=== PATIENT | female | born 1985 | race Caucasian/White ===

== ENCOUNTER 2016-07-09 02:07 | Inpatient (IN) | payer MEDICAID ==
[2016-07-09] MEDS ORDERED: SODIUM CHLORIDE FLUSH 0.9% 10 ML SYRINGE IVP ONE (02:28)
[2016-07-09] MEDS ORDERED: OXYTOCIN/LACTATED RINGERS 250 ML IV ONE ×3 (02:56→05:06)
[2016-07-09] MEDS ORDERED: LACTATED RINGERS 1,000 ML IV SCH ×2 (03:00→05:00)
[2016-07-09] MEDS ORDERED: miSOPROStol 200 MCG TABLET ONE (03:18)
[2016-07-09] MEDS ORDERED: MAGNESIUM HYDROXIDE 2,400 MG/30 ML UDC PO PRN (04:14)
[2016-07-09] MEDS ORDERED: diphenhydrAMINE 25 MG CAPSULE PO PRN (04:14)
[2016-07-09] MEDS ORDERED: OXYTOCIN/LACTATED RINGERS 250 ML IV PRN (04:14)
[2016-07-09] MEDS: IBUPROFEN 600 MG TABLET PO SCH ×4 (04:58→23:03)
[2016-07-09] MEDS: HYDROcod/ACETAM 5/325 MG TABLET PO PRN ×5 (05:18→20:56)
[2016-07-09] MEDS: DOCUSATE SODIUM 100 MG CAPSULE PO SCH ×2 (09:07→20:56)
[2016-07-10] MEDS: HYDROcod/ACETAM 5/325 MG TABLET PO PRN ×2 (03:53→08:20)
[2016-07-10] MEDS: IBUPROFEN 600 MG TABLET PO SCH ×2 (04:54→11:02)
[2016-07-10] MEDS: DOCUSATE SODIUM 100 MG CAPSULE PO SCH (08:20)
== END 2016-07-10 16:10 | disposition home or self-care (01) | DRG 775 ==
PROC: 10E0XZZ Delivery of Products of Conception, External Approach (ICD-10-PCS; principal; 2016-07-09)
DX: O99.213 Obesity complicating pregnancy, third trimester (principal); Z68.42 Body mass index [BMI] 45.0-49.9, adult; O99.214 Obesity complicating childbirth; E66.01 Morbid (severe) obesity due to excess calories; O66.0 Obstructed labor due to shoulder dystocia; O66.2 Obstructed labor due to unusually large fetus; O99.02 Anemia complicating childbirth; D50.0 Iron deficiency anemia secondary to blood loss (chronic); Z3A.40 40 weeks gestation of pregnancy; Z37.0 Single live birth; Z71.3 Dietary counseling and surveillance

== ENCOUNTER 2016-11-11 18:09 | Observation (INO) | payer MEDICAID ==
--- NOTE | 2016-11-11 18:36 | ED Physician Documentation ---
PD HPI ABD PAIN - Stated complaint Stated Complaint: ABD PX - Chief complaint Chief Complaint: Abd Pain - History obtained from History obtained from: Patient - History of Present Illness Timing - onset: How many days ago (3) Timing - duration: Days (3) Timing - details: Gradual onset Pain level max: 8 Pain level now: 6 Quality: Aching, Pain Location: RUQ, Epigastric Radiation: Other (non-radiating) Improved by: Other (nothing, tried tums without relief) Worsened by: Other (nothing) Associated symptoms: Nausea, Vomiting (once). No: Fever, Hematochezia, Dysuria , Hematuria, Chest pain Similar symptoms before: Has not had sx before Recently seen: Not recently seen Review of Systems Ten Systems: 10 systems reviewed and negative Constitutional: denies: Fever, Chills Respiratory: denies: Cough : denies: Now EGA Skin: denies: Rash Musculoskeletal: denies: Neck pain, Back pain Neurologic: denies: Headache PD PAST MEDICAL HISTORY - Past Medical History Past Medical History: Yes Psych: Anxiety - Past Surgical History Past Surgical History: No - Allergies Allergies/Adverse Reactions: Allergies Allergy/AdvReac Type Severity Reaction Status Date / Time No Known Drug Allergies Allergy Verified 07/09/16 04:35 - Social History Does the pt smoke?: No Smoking Status: Never smoker Does the pt drink ETOH?: No Does the pt have substance abuse?: No - Immunizations Immunizations are current?: Yes - POLST Patient has POLST: No PD ED PE NORMAL - Vitals Vital signs reviewed: Yes - General General: Alert and oriented X 3, No acute distress - HEENT HEENT: Moist mucous membranes - Neck Neck: Supple, no meningeal sign - Cardiac Cardiac: RRR - Respiratory Respiratory: No respiratory distress, Clear bilaterally - Abdomen Abdomen: Soft, Other (TTP RUQ, + vigil's sign) - Back Back: No CVA TTP, No spinal TTP - Derm Derm: Warm and dry - Neuro Neuro: Alert and oriented X 3 - Psych Psych: Normal mood, Normal affect Results - Vitals Vitals: Vital Signs - 24 hr 11/11/16 11/11/16 11/11/16 18:14 19:33 21:03 Temperature 37.1 C 36.8 C Heart Rate 90 81 90 Respiratory 17 18 18 Rate Blood Pressure 124/47 L 103/45 L 112/73 O2 Saturation 100 99 97 11/11/16 21:42 Temperature Heart Rate 91 Respiratory 18 Rate Blood Pressure 112/72 O2 Saturation 99 Oxygen O2 Source Room air - Labs Labs: Laboratory Tests 11/11/16 11/11/16 11/11/16 18:24 18:51 18:51 WBC 11.8 H RBC 4.98 Hgb 11.2 L Hct 36.6 L MCV 73.4 L MCH 22.5 L MCHC 30.7 L RDW 18.0 H Plt Count 299 MPV 8.6 Neut # 7.4 H Lymph # 2.1 [place] # 0.6 Eos # 1.6 H Baso # 0.1 Absolute Nucleated RBC 0.00 Nucleated RBCs 0.0 Sodium 139 Potassium 4.0 Chloride 102 Carbon Dioxide 28 Anion Gap 9.0 BUN 10 Creatinine 0.7 Estimated GFR (MDRD) 96 Glucose 107 H Calcium 9.1 Total Bilirubin < 0.2 L AST 21 ALT 24 Alkaline Phosphatase 86 Total Protein 7.6 Albumin 4.1 Globulin 3.5 Albumin/Globulin Ratio 1.2 Lipase 23 Urine Color YELLOW Urine Clarity CLEAR Urine pH 6.5 Ur Specific [place] 1.025 Urine Protein NEGATIVE Urine Glucose (UA) NEGATIVE Urine Ketones NEGATIVE Urine Occult Blood NEGATIVE Urine Nitrite NEGATIVE Urine Bilirubin NEGATIVE Urine Urobilinogen 0.2 (NORMAL) Ur Leukocyte Esterase NEGATIVE Ur Microscopic Review NOT INDICATED Urine Culture Comments NOT INDICATED Urine HCG, Qual NEGATIVE - Rads (name of study) RUQ US Radiology: Prelim report reviewed, EMP read contemporaneously, See rad report ( Cholelithiasis including a non-mobile stone within the neck of the gallbladder. The gallbladder wall is slightly thickened otherwise no additional findings suggestive of acute cholecystitis. 2. No bile duct dilatation. 3. Fatty liver. ) PD MEDICAL DECISION MAKING - ED course Complexity details: reviewed results, re-evaluated patient, considered differential, d/w patient, d/w building energy consultant ED course: Patient is a 31-year-old female who presents to the emergency department with right upper quadrant abdominal pain. Appears to have a gallstone lodged within the gallbladder neck. There is slight wall thickening, concerning for developing cholecystitis. Started on Zosyn. Pain well controlled. Discussed the case with Dr. Villalobos, who accepts the patient. This document was made in part using voice recognition software. While efforts are made to proofread this document, sound alike and grammatical errors may occur. Departure - Departure Disposition: ED Place in Observation Clinical Impression: Cholecystitis, Biliary colic Condition: Stable Discharge Date/Time: 11/11/16 22:30
[2016-11-11 18:43] LABS: BILIRUBIN,URINE NEGATIVE (NEGATIVE); PH,URINE 6.5 PH (5.0-7.5)
[2016-11-11 18:50] LABS: HCG UR QUAL NEGATIVE; UA CHARGE (STRIP ONLY) YES; UR CULTURE IF IND NOT INDICATED
[2016-11-11 19:16] LABS: BASOPHILS # (AUTO) 0.1 10^3/uL (0.0-0.1); BASOPHILS % (AUTO) 0.9 %; EOSINOPHILS # (AUTO) 1.6 10^3/uL (0.0-0.7); EOSINOPHILS % (AUTO) 13.9 %; HCT - HEMATOCRIT 36.6 % (37.0-47.0); HGB - HEMOGLOBIN 11.2 g/dL (12.0-16.0); LYMPHOCYTES # (AUTO) 2.1 10^3/uL (1.5-3.5); LYMPHOCYTES % (AUTO) 17.5 %; MEAN CORPUSCULAR HEMOGLOBIN 22.5 pg (27.0-31.0); MEAN CORPUSCULAR HGB CONC 30.7 g/dL (32.0-36.0); MEAN CORPUSCULAR VOLUME 73.4 fL (81.0-99.0); MEAN PLATELET VOLUME 8.6 fL (7.9-10.8); MONOCYTES # (AUTO) 0.6 10^3/uL (0.0-1.0); MONOCYTES % (AUTO) 4.8 %; NEUTROPHILS # (AUTO) 7.4 10^3/uL (1.5-6.6); NEUTROPHILS % (AUTO) 62.9 %; RED BLOOD COUNT 4.98 10^6/uL (4.20-5.40); UNCORRECTED WHITE BLOOD COUNT 11.8 x10^3/uL; WHITE BLOOD COUNT 11.8 x10^3/uL (4.8-10.8)
[2016-11-11 19:23] LABS: ALBUMIN/GLOBULIN RATIO 1.2 (1.0-2.2); BILIRUBIN,TOTAL < 0.2 mg/dL (0.2-1.0); BUN - BLOOD UREA NITROGEN 10 mg/dL (6-20); CALCIUM 9.1 mg/dL (8.5-10.3); CARBON DIOXIDE - CO2 28 mmol/L (21-32); CHLORIDE 102 mmol/L (101-111); CREATININE 0.7 mg/dL (0.4-1.0); GFR - MDRD 96 (>89); GLUCOSE 107 mg/dL (70-100); LIPASE 23 U/L (22-51); SODIUM 139 mmol/L (135-145); TOTAL PROTEIN 7.6 g/dL (6.7-8.2)
--- NOTE | 2016-11-11 20:01 | Ultrasound Preliminary Report ---
Exam: US Abdomen Limited IMPRESSION: 1. Cholelithiasis including a non-mobile stone within the neck of the gallbladder. The gallbladder wa ll is slightly thickened otherwise no additional findings suggestive of acute cholecystitis. 2. No bile duct dilatation. 3. Fatty liver. [facility] SITE ID: [id number]
--- NOTE | 2016-11-11 20:05 | Ultrasound Report ---
EXAM: ABDOMEN ULTRASOUND LIMITED, RUQ EXAM DATE: 11/11/2016 07:36 PM. CLINICAL HISTORY: RUQ abd pain, poss cholecystitis. COMPARISON: None. TECHNIQUE: Real-time scanning was performed with static images obtained. FINDINGS: Liver: Diffusely hyperechoic echotexture. No focal lesions. 19.3 cm. Main portal vein flow: Hepatopet al. Gallbladder: Numerous stones seen within the gallbladder including a non-mobile stone within the gall bladder neck. The gallbladder wall measures 4 mm in thickness. No pericholecystic fluid collections. Biliary System: CBD measures 5 mm. No intrahepatic or extrahepatic ductal dilatation. Other: The visualized pancreas and right kidney are unremarkable. IMPRESSION: 1. Cholelithiasis including a non-mobile stone within the neck of the gallbladder. The gallbladder wa ll is slightly thickened otherwise no additional findings suggestive of acute cholecystitis. 2. No bile duct dilatation. 3. Fatty liver. [facility] Referring Provider Line: [phone] SITE ID: [id number]
[2016-11-11] MEDS ORDERED: PIPERACILLIN/TAZOBACTAM 3.375 GM in SODIUM CHLORIDE 0.9% MINIBAG 100 ML IV STA (20:09)
[2016-11-11] MEDS ORDERED: HYDROmorphone 1 MG/ML SYRINGE IVP STA (20:16)
[2016-11-11] MEDS ORDERED: SODIUM CHLORIDE 0.9% 1,000 ML IV ONE (20:17)
[2016-11-11] MEDS ORDERED: HYDROmorphone 1 MG/ML SYRINGE ONE (20:19)
[2016-11-11] MEDS ORDERED: LORazepam 2 MG/ML SYRINGE IVP STA (20:55)
[2016-11-11] MEDS ORDERED: LORazepam 2 MG/ML SYRINGE ONE (20:56)
[2016-11-11] MEDS ORDERED: SODIUM CHLORIDE FLUSH 0.9% 10 ML SYRINGE IVP PRN (22:16)
[2016-11-11] MEDS: LACTATED RINGERS 1,000 ML IV SCH (23:39)
[2016-11-11] MEDS: PROMETHAZINE 25 MG/1 ML VIAL IM PRN (23:56)
[2016-11-11] MEDS: HYDROmorphone 1 MG/ML SYRINGE IVP PRN (23:56)
[2016-11-12] MEDS: HYDROmorphone 1 MG/ML SYRINGE IVP PRN ×4 (04:08→15:18)
[2016-11-12] MEDS: LACTATED RINGERS 1,000 ML IV SCH (06:39)
[2016-11-12] MEDS: PROMETHAZINE 25 MG/1 ML VIAL IM PRN (06:48)
[2016-11-12] MEDS ORDERED: PANTOPRAZOLE 40 MG VIAL IVP SCH (07:00)
[2016-11-12] MEDS: SODIUM CHLORIDE FLUSH 0.9% 10 ML SYRINGE IVP SCH ×2 (07:24→15:56)
[2016-11-12] MEDS ORDERED: LACTATED RINGERS 1,000 ML IV ONE ×2 (09:13→10:29)
[2016-11-12] MEDS ORDERED: BUPIVACAINE 0.5% PF 30 ML VIAL SUBQ ONE ×2 (09:38→10:30)
[2016-11-12] MEDS ORDERED: DEXAMETHASONE 4 MG/ML VIAL IVP ONE (10:00)
[2016-11-12] MEDS ORDERED: KETOROLAC 30 MG/ML VIAL IVP ONE (10:00)
[2016-11-12] MEDS ORDERED: ONDANSETRON 4 MG/2 ML VIAL IVP ONE (10:00)
[2016-11-12] MEDS ORDERED: NEOSTIGMINE 1 MG/1 ML 10 ML MDV IVP ONE (10:00)
[2016-11-12] MEDS ORDERED: MIDAZOLAM 2 MG/2 ML VIAL IVP ONE (10:00)
[2016-11-12] MEDS ORDERED: PROPOFOL 200 MG/20 ML VIAL IVP ONE (10:00)
[2016-11-12] MEDS ORDERED: LIDOCAINE-MPF 2% 5 ML VIAL IM ONE (10:00)
[2016-11-12] MEDS ORDERED: fentaNYL 100 MCG/2 ML VIAL IVP ONE (10:00)
[2016-11-12] MEDS ORDERED: ROCURONIUM 50 MG/5 ML VIAL IVP ONE (10:00)
[2016-11-12] MEDS ORDERED: ceFAZolin 2 GM/50 ML BAG IV ONE (10:00)
[2016-11-12] MEDS ORDERED: GLYCOPYRROLATE 1 MG/5 ML VIAL IVP ONE (10:00)
--- NOTE | 2016-11-12 10:39 | OPERATIVE REPORT ---
Operative Report - General Admit Date: 11/11/16 Procedure Date: 11/12/16 Pre-Op Diagnosis: Biliary colic and umbilical hernia Operative Procedure: Laparoscopic cholecystectomy and umbilical herniorrhaphy Post-Op Diagnosis: Same - Procedure Note Anesthesia Technique: Primary Surgeon: Griselda : Anesthesthetist: Evelyn : Fluids: 800 mL Estimated Blood Loss (in cc): 5 Drain/Tube Type: negative: Dank drain, Constavac drain, Hemovac, Oliver Claire flat drain, Oliver Claire round drain, Oliver Claire drain, Lumbar drain, Nephrostomy, [place], Pig tail catheter, Self contained, T-tube, Other Complications: None - Other Other Information/Narrative: After verbal and written informed consent was obtained detailing the risks of infection, bleeding with all of its risks including transfusion, common bile duct injury, and the patient was brought to the operative suite and placed in the supine position on the operating room table. Monitoring devices were applied along with TEDs and pneumatic compressive stockings. Care was taken to avoid pressure points. Prophylactic antibiotics were given. An adequate level of general endotracheal anesthesia was established by Diana Rivas. The abdomen was then prepped with ChloraPrep and draped in a sterile fashion. A "time in" then confirmed that the paitient was identified with 3 identifiers (name, birthdate and medical record number), the history and physical was in the chart, the signed consent confirming the procedure was in the chart, the patient was in the correct position, the aforementioned prophylactic measures were in place or given, we had the correct personel and equipment to complete the procedure and that anesthesia, surgery and nursing were given an opportunuty to express any concerns. The initial incision was at the umbilicus and dissection to the umbilical hernia was completed using blunt dissection. I took care to avoid her previous umbilical piercing site. The hernia sac was grasped with a Pavithra and incised gaining entry into the abdominal cavity without incident. In this location, a 12 mm blunt tipped, balloon tipped port was placed and the balloon was inflated to keep the port in position. The abdominal cavity was insufflated with carbon dioxide to steady-state pressure of 15 mmHg. Three additional 5 mm ports were placed in standard location for laparoscopic cholecystectomy (subxiphoid and 2 right subcostal). The gallbladder fundus was grasped with an atraumatic grasper. Multiple adhesions had to be taken down by blunt and sharp dissection along with electrocautery. Eventually, we identified the infundibulum, and this was then grasped and retracted inferior and laterally. Dissection was then begun in the angle of [place]. The cystic duct and (slightly medially and posteriorly) cystic artery were clearly identified. The critical view was obtained. Two clips proximally and one clip distally were used to control both the cystic duct and cystic artery. Both were then transected with laparoscopic althea. The gallbladder was then removed from its fossa in a retrograde fashion using electrocautery. It was placed in an EndoCatch bag to be extracted through the 12 mm port site. I irrigated the right upper quadrant with a liter of warm sterile saline, and the area was aspirated dry. I inspected the gallbladder fossa and there was no bleeding or bile leak. Clips on the cystic duct and cystic artery appeared to be secure. I briefly visually explored the abdomen. There was no other evidence of overt pathology. I injected the port sites at the peritoneal, fascial, and skin levels under direct vision with 0.5% Marcaine. All ports and the EndoCatch containing the gallbladder were removed. The fascia at the umbilicus was reapproximated using 2 figure-of- eight 0 Vicryl sutures thus repairing the umbilical hernia. The skin at each port site was approximated using a subcuticular 4-0 Monocryl. The surgical count of instruments, needles and sponges was reported as correct twice. Mastisol, Steri-Strips and sterile surgical dressings were applied. The patient was then awakened from anesthesia, extubated, and having tolerated the procedure well, was transported to the recovery room. No complications were encountered. A "time out" confirmed the operation performed, the fluids given, the estimated blood loss and anesthesia, surgery and nursing were given an opportunuty to express any concerns.
--- NOTE | 2016-11-12 10:53 | Discharge Plan ---
Discharge Plan Disposition: 01 Home, Self Care Condition: Stable Prescriptions: Hydrocodone/Acetaminophen [[place] 10-325 Tablet] 1 each PO Q4HR #30 tablet Docusate Sodium 250Mg Capsule [Colace 250Mg Capsule] 250 mg PO DAILY #10 capsule Diet: Regular Activity Restrictions: Additional Comments (No lifting >15 pounds x6 weeks.) Shower Restrictions: No Driving Restrictions: No Weight Bearing: Full Weight No Smoking: If you smoke, Please STOP! Call for help. Follow-up with: Sabina Brady ARNP [Primary Care Provider] - Aung Villalobos MD [Provider Admit Priv/Credential] -
[2016-11-12] MEDS ORDERED: ACETAMINOPHEN 1,000 MG/100 ML 100 ML IV ONE (11:02)
[2016-11-12] MEDS: HYDROmorphone 1 MG/ML SYRINGE ONE ×2 (11:16→11:23)
[2016-11-12] MEDS ORDERED: HYDROcod/ACETAM 10 MG/325 MG TABLET PO PRN (14:39)
[2016-11-12 17:44] VITALS: BP 123/78
--- NOTE | 2016-11-13 11:27 | PREOP HISTORY & PHYSICAL ---
DATE OF ADMISSION/SURGERY: DATE OF ADMISSION: 11/11/2016 PREOPERATIVE HISTORY AND PHYSICAL/CONSULTATION HISTORY OF PRESENT ILLNESS: I am called in consultation by Dr. Marcos Castle to evaluate this very p leasant 31-year-old female for biliary colic. The patient was evaluated at [facility]'s emergency department room #6. The patient had the abrupt onset of abdominal pain located in the epigastrium and right upper quadrant approximately 3 days ago after eating a breakfast burrito. The p ain had an aching quality and became persistent. It is describes as very, very sharp. Nothing seems t o improve the pain. Eating seems to worsen the pain. She had one bout of vomiting, multiple bouts of nausea. She denies any fever, hematochezia, hematemesis, melena, dysuria, or chest pain. She has neve r had these symptoms previously; importantly, she has had 3 pregnancies, the last one most recently s he delivered 4 months ago. PAST MEDICAL AND SURGICAL HISTORY: Anxiety. ALLERGIES: NONE. MEDICATIONS: None. SOCIAL HISTORY TOBACCO: Never. ALCOHOL: None. RECREATIONAL DRUG USE: None. FAMILY HISTORY: Significant in her grandparents for substance abuse. There are no disease processes t hat are pertinent for this current disease process. REVIEW OF SYSTEMS CONSTITUTIONAL: There has been no weight loss, fever, or chills. HEENT: She had no change in her vision or hearing. No problems with dysphasia or phonation. CARDIAC: No chest pain or pressure. RESPIRATORY: No shortness of breath or productive cough. GASTROINTESTINAL: See above. GENITOURINARY: No dysuria. SKIN: No rashes. MUSCULOSKELETAL: There are no significant aches or pains. PSYCHIATRIC: She admits to having quite a bit of anxiety with 3 small children, the eldest being 3 ye ars old, the youngest being 4 months old, and her parents living with her all under 1 roof. STUDIES The abdominal ultrasound report read by Dr. Hussein reads cholelithiasis including a nonmobile stone wit hin the neck of the gallbladder. The gallbladder wall is slightly thickened with no additional findin gs suggestive of acute cholecystitis. There is no bile duct dilatation, and there is a fatty liver. LABORATORY: Abnormalities on her CMP include a glucose of 107, total bilirubin of less than 0.2. Abno rmalities on her hematology include a WBC count of 11.8, hemoglobin 11.2, hematocrit 36.6, MCV of 73. 4, MCH 22.5, MCHC of 30.7, RDW 18. Neutrophils 7.4, eosinophils are 1.6. URINE: Her urine was negative, including for . ASSESSMENT: A 31-year-old multiparous female who has had a 3-day history of right upper quadrant pain consistent from a biliary origin, with findings on ultrasound to suggest that it is biliary in origi n. PLAN: Laparoscopic cholecystectomy, possible open cholecystectomy, possible intraoperative cholangiog jordan, possible common bile duct exploration. The indications, procedure, alternatives, and possible complications including, but not limited to infection, bleeding with all its risks including transfus ion, bile duct injury, and were fully explained to the patient. All questions were answered. Ve rbal and written consent was obtained. The patient will be operated on in the morning at 0900 hours. I have asked her to let us know if there is any way we can make her stay here at [facility] more comfortable, to please let us know. Additionally, in the interim time, I will be able t o get her hydrated, as she has not had anything to eat or drink today. Spent 45 minutes of [id number] time with the patient and in preparation of this document. JOB #: [id number] EXT JOB #:[id number]
== END 2016-11-12 17:45 | disposition home or self-care (01) ==
LOC: ED 18:09 → MS 22:16
PROVIDERS: ADMIT Surgery; ATTEND Surgery
PROC: 0FT44ZZ Resection of Gallbladder, Percutaneous Endoscopic Approach (ICD-10-PCS; principal; 2016-11-12 09:00)
DX: K80.20 Calculus of gallbladder without cholecystitis without obstruction (principal); E66.9 Obesity, unspecified; Z68.45 Body mass index [BMI] 70 or greater, adult
CPT/HCPCS: 36415; 47562; 76705; 80053; 81003; 81025; 83690; 85025; 88304; 96365; 96375; 96376; 99284; 99285; A9270; G0378; J0131; J0690; J1170; J2060; J7120; 81001; 87086

== ENCOUNTER 2016-12-05 16:11 | Observation (INO) | payer MEDICAID ==
--- NOTE | 2016-12-05 17:42 | ED Physician Documentation ---
PD HPI ABD PAIN - Stated complaint Stated Complaint: AB PX - Chief complaint Chief Complaint: Abd Pain - History obtained from History obtained from: Patient - History of Present Illness Timing - onset: How many weeks ago (3) Timing - duration: Weeks (3 weeks ago with RUQ pain and had acute cholecystitis , admitted and had surgery next day, on November 12. Since surgery has had persistent pains RUQ area and nausea. Pain worse after eating. This has increased the past week or so, with poor PO intake due to it. Seen by PMD and started on Nexium, thinking possible gastritis, but not improved with this. She is feeling weak and lightheaded as less intake the past several days even more. No pain nor redness/drainage at incision sites. The pain is upper abd/RUQ area, worse with eating. She is having vomiting the past several days as well. No hematemesis.) Timing - details: Gradual onset, Still present, Waxing and waning Quality: Cramping, Aching, Pain Location: RUQ, Epigastric Radiation: No: Chest, Upper back Improved by: Position (better on side and sitting up.). No: Eating, Vomiting Worsened by: Eating, Position (lying flat), Palpation. No: Breathing Associated symptoms: Nausea, Vomiting, Diarrhea (loose stools since surgery). No: Fever, Hematemesis, Constipation, Hematochezia Similar symptoms before: Has not had sx before Recently seen: Emergency Dept, Admitted, Surgery (November 12 had CCY due to acute cholcystitis.) Review of Systems Constitutional: reports: Myalgias. denies: Fever, Chills Nose: denies: Rhinorrhea / runny nose, Congestion Throat: denies: Sore throat Cardiac: denies: Chest pain / pressure Respiratory: denies: Dyspnea, Cough, Wheezing GI: reports: Abdominal Pain, Nausea, Vomiting, Diarrhea. denies: Constipation, Hematemesis, Bloody / black stool : denies: Dysuria, Frequency Skin: denies: Rash, Lesions Neurologic: reports: Generalized weakness. denies: Focal weakness, Numbness Psychiatric: denies: Depressed Endocrine: reports: Weight loss Immunocompromised: denies: Immunocompromised PD PAST MEDICAL HISTORY - Past Medical History Cardiovascular: None Respiratory: None Neuro: Headache/migraine Endocrine/Autoimmune: None HEENT: Other Psych: Anxiety Derm: None - Past Surgical History Past Surgical History: No - Present Medications Home Medications: Ambulatory Orders Medication Instructions Recorded Confirmed Docusate Sodium 250Mg Capsule 250 mg PO DAILY #10 capsule 11/12/16 [Colace 250Mg Capsule] Hydrocodone/Acetaminophen [[place] 1 each PO Q4HR #30 tablet 11/12/16 10-325 Tablet] - Allergies Allergies/Adverse Reactions: Allergies Allergy/AdvReac Type Severity Reaction Status Date / Time egg Allergy Anaphylaxis Verified 11/12/16 14:08 Egg Derived Allergy Anaphylaxis Verified 11/12/16 14:06 - Social History Does the pt smoke?: No Smoking Status: Never smoker Does the pt drink ETOH?: No Does the pt have substance abuse?: No - Family History Family history: reports: Non contributory - Immunizations Immunizations are current?: Yes - POLST Patient has POLST: No PD ED PE NORMAL - Vitals Vital signs reviewed: Yes - General General: Alert and oriented X 3, Well developed/nourished, Other (appears uncomfortable) - HEENT HEENT: Atraumatic, PERRL (nonicteric), Ears normal, Pharynx benign. No: Moist mucous membranes - Neck Neck: Supple, no meningeal sign, No adenopathy - Cardiac Cardiac: RRR, No murmur - Respiratory Respiratory: Clear bilaterally - Abdomen Abdomen: Soft, Non distended, No organomegaly, Other (skin scope sites without signs of infection and minimal to no tenderness. RUQ and epigastric areas tender with some guarding. No percussion nor rebound. ). No: Normal bowel sounds (decreased) - Female Female : Deferred - Rectal Rectal: Deferred - Back Back: No CVA TTP - Derm Derm: Normal color, No rash - Extremities Extremities: No deformity, Normal ROM s pain, No edema, No calf tenderness / cord - Neuro Neuro: Alert and oriented X 3, No motor deficit, Normal speech - Psych Psych: Normal mood, Normal affect Results - Vitals Vitals: Vital Signs - 24 hr 12/05/16 12/05/16 12/05/16 16:12 18:16 19:35 Temperature 36.9 C Heart Rate 92 72 80 Respiratory 18 16 16 Rate Blood Pressure 139/90 H 123/72 112/67 O2 Saturation 98 97 98 12/05/16 21:50 Temperature 37.1 C Heart Rate 91 Respiratory 16 Rate Blood Pressure 110/70 O2 Saturation 97 Oxygen O2 Source Room air - Labs Labs: Laboratory Tests 12/05/16 12/05/16 12/05/16 18:13 18:13 19:37 WBC 13.2 H RBC 4.89 Hgb 11.5 L Hct 35.8 L MCV 73.1 L MCH 23.6 L MCHC 32.2 RDW 17.8 H Plt Count 302 MPV 8.7 Neut # Not Reportable Lymph # Not Reportable [place] # Not Reportable Eos # Not Reportable Baso # Not Reportable Absolute Nucleated RBC Not Reportable Total Counted 100 Band Neuts % (Manual) 0 Neutrophils # (Manual) 7.8 H Lymphocytes # (Manual) 2.8 Monocytes # (Manual) 0.5 Eosinophils # (Manual) 2.1 H Nucleated RBCs Not Reportable Differential Comment MANUAL DIFFERENTIAL Platelet Estimate NORMAL (130-450,000) Platelet Morphology RARE GIANT PLATELETS RBC Morph Micro Appear 2+ MICROCYTOSIS Sodium 140 Potassium 3.8 Chloride 103 Carbon Dioxide 28 Anion Gap 9.0 BUN 5 L Creatinine 0.8 Estimated GFR (MDRD) 83 L Glucose 100 Calcium 9.0 Total Bilirubin 0.4 AST 19 ALT 20 Alkaline Phosphatase 93 Total Protein 7.5 Albumin 4.1 Globulin 3.4 Albumin/Globulin Ratio 1.2 Lipase 19 L Urine Color YELLOW Urine Clarity CLEAR Urine pH 5.5 Ur Specific [place] 1.010 Urine Protein NEGATIVE Urine Glucose (UA) NEGATIVE Urine Ketones NEGATIVE Urine Occult Blood NEGATIVE Urine Nitrite NEGATIVE Urine Bilirubin NEGATIVE Urine Urobilinogen 0.2 (NORMAL) Ur Leukocyte Esterase NEGATIVE Ur Microscopic Review NOT INDICATED Urine Culture Comments NOT INDICATED - Rads (name of study) Abd CT Radiology: Prelim report reviewed (no signs of abscess/leakage/inflammation at surgical area. CBD 10 mm. ) PD MEDICAL DECISION MAKING - ED course Complexity details: reviewed results, re-evaluated patient (Improved symptoms with IV meds for pain and nausea, and also given Famotidine presuming gastritis. No signs of postop infection. ), considered differential (presume gastritis/ulcer, given pain with eating and in location. No signs of bile leakage/abscess in RUQ. She is having pain with eating and sips of fluids still here after meds, though general pain is better. Concern for tolerating PO intake still and talked with Dr. Reyes, who will see patient in the ED and place in OBS. ), d/w patient Departure - Departure Disposition: ED Place in Observation Clinical Impression: Post-op pain, Post-operative nausea and vomiting, Dehydration Condition: Stable Record reviewed to determine appropriate education?: Yes
[2016-12-05] MEDS ORDERED: ONDANSETRON 4 MG/2 ML VIAL IVP STA ×2 (17:57→22:53)
[2016-12-05] MEDS ORDERED: FAMOTIDINE 20 MG/50 ML 50 ML IV ONE ×2 (17:57→18:01)
[2016-12-05] MEDS ORDERED: SODIUM CHLORIDE 0.9% 1,000 ML IV ONE ×2 (17:57→20:13)
[2016-12-05] MEDS ORDERED: HYDROmorphone 1 MG/ML SYRINGE IVP STA ×2 (17:57→22:53)
[2016-12-05] MEDS ORDERED: HYDROmorphone 1 MG/ML SYRINGE ONE ×2 (18:01→22:56)
[2016-12-05] MEDS ORDERED: ONDANSETRON 4 MG/2 ML VIAL ONE ×2 (18:01→22:56)
[2016-12-05 18:26] LABS: BASOPHILS % (AUTO) 2.7 %; EOSINOPHILS % (AUTO) 15.7 %; HCT - HEMATOCRIT 35.8 % (37.0-47.0); HGB - HEMOGLOBIN 11.5 g/dL (12.0-16.0); LYMPHOCYTES % (AUTO) 10.4 %; MEAN CORPUSCULAR HEMOGLOBIN 23.6 pg (27.0-31.0); MEAN CORPUSCULAR HGB CONC 32.2 g/dL (32.0-36.0); MEAN CORPUSCULAR VOLUME 73.1 fL (81.0-99.0); MEAN PLATELET VOLUME 8.7 fL (7.9-10.8); MONOCYTES % (AUTO) 4.6 %; NEUTROPHILS % (AUTO) 66.6 %; RED BLOOD COUNT 4.89 10^6/uL (4.20-5.40); RED CELL DISTRIBUTION WIDTH 17.8 % (12.0-15.0); UNCORRECTED WHITE BLOOD COUNT 13.2 x10^3/uL; WHITE BLOOD COUNT 13.2 x10^3/uL (4.8-10.8)
[2016-12-05 18:28] LABS: BAND NEUTROPHILS % (MANUAL) 0 %
[2016-12-05 18:31] LABS: ALBUMIN/GLOBULIN RATIO 1.2 (1.0-2.2); BILIRUBIN,TOTAL 0.4 mg/dL (0.2-1.0); CREATININE 0.8 mg/dL (0.4-1.0); POTASSIUM 3.8 mmol/L (3.5-5.0); TOTAL PROTEIN 7.5 g/dL (6.7-8.2)
[2016-12-05] MEDS ORDERED: IOPAMIDOL-300 100 ML VIAL IVP ONE (18:59)
[2016-12-05 19:00] LABS: EOSINOPHILS % (MANUAL) 16 %; LYMPHOCYTES % (MANUAL) 21 %; NEUTROPHILS % (MANUAL) 59 %; TOTAL CELLS COUNTED 100
[2016-12-05 19:01] LABS: PLATELET ESTIMATE, MANUAL NORMAL (130-450,000) (NORMAL); PLATELET MORPHOLOGY RARE GIANT PLATELETS (NORMAL)
[2016-12-05 19:02] LABS: NP AUTO DIFFERENTIAL? YES; NP MAN DIFFERENTIAL? NO
--- NOTE | 2016-12-05 19:48 | CT Preliminary Report ---
Exam: CT Abdomen/Pelvis W/ IMPRESSION: 1. Cholecystectomy, with prominent common bile duct 10 mm in diameter, but no surrounding fluid colle ctions or fat stranding. 2. Mild diverticulosis without diverticulitis. 3. IUD in place. [facility] SITE ID: [id number]
--- NOTE | 2016-12-05 19:50 | CT Report ---
EXAM: CT ABDOMEN AND PELVIS EXAM DATE: 12/05/2016 07:00 PM. CLINICAL HISTORY: Worsening right upper quadrant pain 3 weeks post cholecystectomy. COMPARISONS: None. TECHNIQUE: Routine helical CT imaging was performed through the abdomen and pelvis. IV contrast: 100 cc of Isovue-300. Enteric contrast: No. Reconstructions: Coronal and sagittal. In accordance with CT protocol optimization, one or more of the following dose reduction techniques w ere utilized for this exam: automated exposure control, adjustment of mA and/or KV based on patient s ize, or use of iterative reconstructive technique. FINDINGS: Lung Bases: Unremarkable. Liver: Normal. No masses. Gallbladder/Bile Ducts: Cholecystectomy. Prominent common bile duct 10 mm in diameter. No postop fat stranding or fluid collections.. Spleen: Normal. Pancreas: Normal. Adrenal Glands: Normal. Kidneys: Normal. No masses or hydronephrosis. Peritoneal Cavity/Bowel: Mild diverticulosis. No free fluid, free air or adenopathy. No masses or acu te inflammatory process. The appendix is well visualized and normal. Pelvic Organs: IUD in place, otherwise reproductive organs and bladder are unremarkable. Vasculature: No aneurysms or other significant abnormality. Bones: No significant abnormality. Other: None. IMPRESSION: 1. Cholecystectomy, with prominent common bile duct, but no surrounding fluid collections or fat stra nding. 2. Mild diverticulosis without diverticulitis. 3. IUD in place. [facility] Referring Provider Line: [phone] SITE ID: [id number]
[2016-12-05 20:00] LABS: BILIRUBIN,URINE NEGATIVE (NEGATIVE); PH,URINE 5.5 PH (5.0-7.5)
[2016-12-05 20:04] LABS: UA CHARGE (STRIP ONLY) YES; UR CULTURE IF IND NOT INDICATED
[2016-12-05] MEDS ORDERED: MAG HYDROX/AL HYDROX/SIMETH 30 ML UDC PO STA (20:37)
[2016-12-05] MEDS ORDERED: MAG HYDROX/AL HYDROX/SIMETH 30 ML UDC ONE (20:39)
--- NOTE | 2016-12-05 23:20 | HISTORY & PHYSICAL EXAMINATION ---
Chief Complaint - Chief Complaint Chief Complaint: Abdominal pain History of Present Illness - Admitted From Admitted From:: ED - History Obtained From History obtained from: patient Exam Limitations: none - History of Present Illness Pain/Problem Location Description: Epigastric Severity: 8/10 Quality: sharp Timing: intermittent Duration: 3 weeks Improved with: strong pain medication Worsened by: nothing Associated Symptoms: nausea, vomiting, diarrhea, intermittent fever HPI Comment/Other: 31 yo female known to our surgical service after having gallbladder removed . Post operatively she has complained of epigastric pain and nausea.She has seen her PCP and called the surgical office on 12/01/16 and she was to be seen in office this week. She has tried a GI cocktail of Benadryl, Lidocaine, and Edward Aid, Has tried [place], Nexium and stool softeners and nothing has been helping. She presents today because the pain has become unbearable. No new foods , no recent travel. LMP october 2016 Review of Systems - Constitutional Constitutional: reports: Fatigue, Poor appetite - Eyes Eyes: denies: Pain - Ears, Nose & Throat Ears, Nose & Throat: denies: Ear pain - Cardiovascular Cariovascular: denies: Chest pain, Syncope - Respiratory Respiratory: denies: Cough, Wheezing, Hemoptysis, SOB with exertion - Gastrointestinal Gastrointestinal: reports: Abdominal pain, Diarrhea, Nausea, Vomiting, Poor appetite. denies: Constipation, Black stools, Bile emesis - Genitourinary Genitourinary: denies: Dysuria, Hematuria - Musculoskeletal Musculoskeletal: denies: Stiffness - Integumentary Integumentary: denies: Rash - Neurological Neurological: reports: General weakness, Headache - Psychiatric Psychiatric: reports: Anxiety - Endocrine Endocrine: denies: Polyuria - Hematologic/Lymphatic Hematologic/Lymphatic: reports: Anemia (chronic iron deficient anemia) - All Other Systems All Other Systems: reports: Reviewed and negative History - Past Medical History Cardiovascular: reports: None Respiratory: reports: None Neuro: reports: Headache/migraine Endocrine/Autoimmune: reports: None HEENT: reports: Other Psych: reports: Anxiety Derm: reports: None MRSA Hx?: No - Family & Social History Living arrangement: At home Living Situation: With spouse/s.o., With family - Substance History Use: Uses substance without health or social issues: NONE Abuse: Recurrent use of substance despite neg consequences: NONE Dependence: Experiences withdrawal or developed tolerances: NONE - POLST Patient has POLST: No Meds/Allgy - Home Medications Home Medications: Ambulatory Orders Medication Instructions Recorded Confirmed Docusate Sodium 250Mg Capsule 250 mg PO DAILY #10 capsule 11/12/16 [Colace 250Mg Capsule] Hydrocodone/Acetaminophen [[place] 1 each PO Q4HR #30 tablet 11/12/16 10-325 Tablet] - Allergies Allergies/Adverse Reactions: Allergies Allergy/AdvReac Type Severity Reaction Status Date / Time egg Allergy Anaphylaxis Verified 11/12/16 14:08 Egg Derived Allergy Anaphylaxis Verified 11/12/16 14:06 Exam - Vital Signs Reviewed Vital Signs: Yes Vital Signs: Vital Signs x48h Temp Pulse Resp BP Pulse Ox 12/05/16 21:50 37.1 C 91 16 110/70 97 12/05/16 19:35 80 16 112/67 98 12/05/16 18:16 72 16 123/72 97 12/05/16 16:12 36.9 C 92 18 139/90 H 98 - Physical Exam General Appearance: positive: No acute distress Eyes Bilateral: positive: PERRL, EOMI ENT: positive: Dry mucous membranes Neck: positive: Nml inspection Respiratory: positive: Breath sounds nml Cardiovascular: positive: Regular rate & rhythm Peripheral Pulses: positive: 2+ Abdomen: positive: Tenderness (+ BS , soft Morbidly obese abdomen. Surgical scars well healed. TTP epigastric area) Back: positive: CVA tenderness (L) Extremities: positive: Pedal edema (+1 B/L). negative: Jean's sign/cords Neurologic/Psychiatric: positive: Oriented x3, CN's nml (2-12) Conclusion/Plan - Problem List (1) Post-op pain Conclusion/Plan: 31 yo female with postoperative pain, with Nausea and dehydration. Will admit for observation IV fluids pain control Am labs - Lab Results Lab results reviewed: Yes Fish Bones: 12/05/16 18:13 12/05/16 18:13 - Diagnostic Imaging Results Diagnostic Imaging Results: positive: Read contemporaneously (CT ABd/P 12/05/16 IMPRESSION: 1. Cholecystectomy, with prominent common bile duct, but no surrounding fluid collections or fat stranding. 2. Mild diverticulosis without diverticulitis. 3. IUD in place.) Issues/Core Measures - Anticipated LOS Anticipated Stay Length: Less than 2 midnights - DVT/VTE - Prophylaxis VTE/DVT Device ordered at admit?: Yes VTE/DVT Prophylaxis med ordered at admit?: Yes
[2016-12-06] MEDS: PANTOPRAZOLE 40 MG VIAL IV SCH ×2 (00:46→09:20)
[2016-12-06] MEDS: SODIUM CHLORIDE FLUSH 0.9% 10 ML SYRINGE IVP PRN ×5 (00:46→12:39)
[2016-12-06] MEDS: LACTATED RINGERS 1,000 ML IV SCH ×4 (00:46→18:23)
[2016-12-06] MEDS: ACETAMINOPHEN 1,000 MG/100 ML 100 ML IV PRN ×3 (00:59→12:39)
[2016-12-06] MEDS: ONDANSETRON 4 MG/2 ML VIAL IVP PRN ×2 (03:54→12:38)
[2016-12-06] MEDS: HYDROmorphone 1 MG/ML SYRINGE IVP PRN ×3 (04:10→11:22)
[2016-12-06] MEDS: SODIUM CHLORIDE FLUSH 0.9% 10 ML SYRINGE IVP SCH ×3 (05:11→18:23)
[2016-12-06 07:47] LABS: BASOPHILS # (AUTO) 0.1 10^3/uL (0.0-0.1); BASOPHILS % (AUTO) 0.8 %; EOSINOPHILS # (AUTO) 1.5 10^3/uL (0.0-0.7); EOSINOPHILS % (AUTO) 12.9 %; HCT - HEMATOCRIT 32.5 % (37.0-47.0); HGB - HEMOGLOBIN 10.5 g/dL (12.0-16.0); LYMPHOCYTES # (AUTO) 2.7 10^3/uL (1.5-3.5); MEAN CORPUSCULAR HEMOGLOBIN 23.4 pg (27.0-31.0); MEAN CORPUSCULAR HGB CONC 32.3 g/dL (32.0-36.0); MEAN CORPUSCULAR VOLUME 72.6 fL (81.0-99.0); MEAN PLATELET VOLUME 8.6 fL (7.9-10.8); MONOCYTES # (AUTO) 0.7 10^3/uL (0.0-1.0); MONOCYTES % (AUTO) 5.6 %; NEUTROPHILS # (AUTO) 6.9 10^3/uL (1.5-6.6); NEUTROPHILS % (AUTO) 57.7 %; RED BLOOD COUNT 4.47 10^6/uL (4.20-5.40); RED CELL DISTRIBUTION WIDTH 17.9 % (12.0-15.0)
[2016-12-06] MEDS: METOCLOPRAMIDE 10 MG/2 ML VIAL IVP SCH ×3 (07:55→20:05)
[2016-12-06 08:47] LABS: PLATELET ESTIMATE, MANUAL NORMAL (130-450,000) (NORMAL); PLATELET MORPHOLOGY NORMAL APPEARANCE (NORMAL)
--- NOTE | 2016-12-06 15:48 | Nuclear Medicine Prelim Report ---
Exam: NM Hepatobiliary HIDA w/o Rx IMPRESSION: 1. No evidence of bile leak at 30 minutes. 2. If there is persistent clinical concern for a slow leak, delayed images can be obtained. [facility] SITE ID: [id number]
--- NOTE | 2016-12-06 15:51 | Nuclear Medicine Report ---
EXAM: HEPATOBILIARY SCAN EXAM DATE: 12/06/2016 01:49 PM. CLINICAL HISTORY: Post-cholecystectomy 11/12/16 abdominal pain. COMPARISON: CT 12/05/2016 TECHNIQUE: Following the intravenous administration of 5 mCi of Tc99m Mebrofenin, a hepatobiliary sca n was done centered on the right upper quadrant region in multiple sequential images and projections for 30 minutes. FINDINGS: Normal extraction of tracer from the blood pool indicating normal hepatocellular function. The liver size and shape is grossly within normal limits. There is activity visualized in the bile ducts and small bowel. No abnormal collection of activity in the gallbladder fossa and no abnormal free intraperitoneal activity. IMPRESSION: 1. No evidence of bile leak at 30 minutes. 2. If there is persistent clinical concern for a slow leak, delayed images can be obtained. [facility] Referring Provider Line: [phone] SITE ID: [id number]
--- NOTE | 2016-12-06 16:45 | PROVIDER PROGRESS NOTE ---
Subjective - General Admit Date: 12/05/16 Procedure Date: 11/12/16 Post Op Days: 24 Procedure Performed: Laparoscopic cholecystectomy - Review of Systems Wound/Incisions: positive: Healing well General: positive: No symptoms HEENT: positive: Headaches (That the patient states is due to the Dilaudid.) Pulmonary: positive: No symptoms Cardiovascular: positive: No symptoms Gastrointestinal: positive: Abdominal pain (Occurs every time she eats anything started 10 days after her surgery.) Genitourinary: positive: Dysuria (Mild "like I [sic] am starting to have UTI.") Musculoskeletal: positive: No symptoms Skin: positive: No symptoms Psychiatric: positive: No symptoms All Other Systems: positive: Reviewed and negative Objective - Patient Data Reviewed Vital Signs: Yes Vital Signs: Vital Signs x48h Temp Pulse Resp BP Pulse Ox 12/06/16 12:01 37.1 C 86 18 107/72 97 Weight: Weight 12/04/16 12/05/16 12/06/16 23:59 23:59 23:59 Weight (kg) 132 kg Intake & Output: Intake and Output Totals x24h 12/04/16 12/05/16 12/06/16 23:59 23:59 23:59 Intake Total 2298 Output Total 200 Balance 2098 - Lab Results Lab Results: 12/06/16 07:35 12/05/16 18:13 Other Lab Results: Lab Results x24hrs 12/06/16 Range/Units 07:35 WBC 12.0 H (4.8-10.8) x10^3/uL RBC 4.47 (4.20-5.40) 10^6/uL Hgb 10.5 L (12.0-16.0) g/dL Hct 32.5 L (37.0-47.0) % MCV 72.6 L (81.0-99.0) fL MCH 23.4 L (27.0-31.0) pg MCHC 32.3 (32.0-36.0) g/dL RDW 17.9 H (12.0-15.0) % Plt Count 271 (130-450) 10^3/uL MPV 8.6 (7.9-10.8) fL Neut # 6.9 H (1.5-6.6) 10^3/uL Lymph # 2.7 (1.5-3.5) 10^3/uL Keith # 0.7 (0.0-1.0) 10^3/uL Eos # 1.5 H (0.0-0.7) 10^3/uL Baso # 0.1 (0.0-0.1) 10^3/uL Absolute Nucleated RBC 0.00 x10^3/uL Nucleated RBCs 0.0 /100WBC WBC Morphology (NORMAL) Platelet Estimate NORMAL (130-450,000) (NORMAL) Platelet Morphology NORMAL APPEARANCE (NORMAL) RBC Morph Micro Appear 1+ POIKILOCYTOSIS (NORMAL) - Current Medications Current Medications: Current Medications Generic Name Dose Route Start Last Admin Trade Name Freq PRN Reason Stop Dose Admin Hydromorphone HCl 1 mg 12/05/16 23:42 12/06/16 11:22 Dilaudid Inj IVP 1 mg Q4H PRN Administration PAIN Lactated Ringer's 1,000 mls @ 140 mls/hr 12/05/16 23:45 12/06/16 14:44 Lr IV Not Given .Q7H9M LAURA Acetaminophen 100 mls @ 400 mls/hr 12/05/16 23:42 12/06/16 12:39 Ofirmev IV 12/07/16 23:41 400 mls/hr Q6HR PRN Administration PAIN Metoclopramide HCl 5 mg 12/06/16 08:00 12/06/16 14:44 Reglan Inj IVP 12/07/16 07:59 5 mg Q6H LAURA Administration Ondansetron HCl 4 mg 12/05/16 23:52 12/06/16 12:38 Zofran Inj IVP 4 mg Q6HR PRN Administration Nausea / Vomiting Pantoprazole Sodium 40 mg 12/06/16 00:01 12/06/16 09:20 Protonix IV 40 mg DAILY LAURA Administration Sodium Chloride 10 ml 12/05/16 23:42 12/06/16 12:39 Normal Saline Flush 0.9% IVP 10 ml PRN PRN Administration NEEDED PER PROVIDER ORDERS Sodium Chloride 10 ml 12/06/16 06:00 12/06/16 14:44 Normal Saline Flush 0.9% IVP 10 ml Q8HR LAURA Administration - Physical Exam Wound/Incisions: positive: Healing well General Appearance: positive: No acute distress Eyes Bilateral: positive: No lid inflammation, Conjunctivae nml, No scleral icterus Neck: positive: Trachea midline Respiratory: positive: No respiratory distress Cardiovascular: positive: Regular rate & rhythm Abdomen: positive: Nml bowel sounds, No distention Skin: positive: Color nml Extremities: positive: Non-tender, Full ROM, Nml appearance Neurologic/Psychiatric: positive: Oriented x3 Impression/Plan - Problem List Problem List: Post prandial abdominal pain in a patient who is more than 3 weeks removed from a laparoscopic cholecystectomy with normal LFTs and normal CT scan and HIDA. The only thing that I can think of is a retained CBD stone. Clearly there is flow into the small bowel but there may still be a small piece of "gravel" causing her symptoms. Will check this in AM with a MRCP. In the meantime switch out her Dilaudid for Morphine. Follow labs in AM.
[2016-12-06] MEDS: MORPHINE 2 MG/ML SYRINGE IVP PRN ×2 (18:22→20:33)
[2016-12-07] MEDS: METOCLOPRAMIDE 10 MG/2 ML VIAL IVP SCH (02:08)
[2016-12-07] MEDS: LACTATED RINGERS 1,000 ML IV SCH ×2 (02:08→12:53)
[2016-12-07] MEDS: SODIUM CHLORIDE FLUSH 0.9% 10 ML SYRINGE IVP SCH ×2 (05:03→14:20)
[2016-12-07 05:32] LABS: BASOPHILS % (AUTO) 0.6 %; EOSINOPHILS # (AUTO) 1.1 10^3/uL (0.0-0.7); EOSINOPHILS % (AUTO) 14.4 %; HCT - HEMATOCRIT 31.1 % (37.0-47.0); LYMPHOCYTES # (AUTO) 1.8 10^3/uL (1.5-3.5); LYMPHOCYTES % (AUTO) 22.7 %; MEAN CORPUSCULAR HEMOGLOBIN 23.6 pg (27.0-31.0); MEAN CORPUSCULAR HGB CONC 32.1 g/dL (32.0-36.0); MEAN CORPUSCULAR VOLUME 73.3 fL (81.0-99.0); MEAN PLATELET VOLUME 8.4 fL (7.9-10.8); MONOCYTES # (AUTO) 0.5 10^3/uL (0.0-1.0); MONOCYTES % (AUTO) 6.1 %; NEUTROPHILS # (AUTO) 4.4 10^3/uL (1.5-6.6); NEUTROPHILS % (AUTO) 56.2 %; RED BLOOD COUNT 4.25 10^6/uL (4.20-5.40); RED CELL DISTRIBUTION WIDTH 17.5 % (12.0-15.0); UNCORRECTED WHITE BLOOD COUNT 7.9 x10^3/uL; WHITE BLOOD COUNT 7.9 x10^3/uL (4.8-10.8)
[2016-12-07 05:46] LABS: ALBUMIN/GLOBULIN RATIO 1.2 (1.0-2.2); BILIRUBIN,TOTAL 0.3 mg/dL (0.2-1.0); BUN - BLOOD UREA NITROGEN < 5 mg/dL (6-20); CALCIUM 8.6 mg/dL (8.5-10.3); CARBON DIOXIDE - CO2 27 mmol/L (21-32); CHLORIDE 106 mmol/L (101-111); CREATININE 0.7 mg/dL (0.4-1.0); GFR - MDRD 96 (>89); GLUCOSE 95 mg/dL (70-100); POTASSIUM 3.7 mmol/L (3.5-5.0); SODIUM 139 mmol/L (135-145)
[2016-12-07 06:00] LABS: PLATELET ESTIMATE, MANUAL NORMAL (130-450,000) (NORMAL); PLATELET MORPHOLOGY NORMAL APPEARANCE (NORMAL)
[2016-12-07] MEDS: PANTOPRAZOLE 40 MG VIAL IV SCH (09:39)
[2016-12-07] MEDS: SODIUM CHLORIDE FLUSH 0.9% 10 ML SYRINGE IVP PRN (09:39)
--- NOTE | 2016-12-07 11:11 | MRI Preliminary Report ---
Exam: MRI MRCP W/O IMPRESSION: 1. No choledocholithiasis or biliary ductal dilatation. 2. Prior cholecystectomy. No abnormal fluid collection evident. 3. A tiny 2 mm cystic focus within dorsal pancreatic neck. Question tiny cyst or sidebranch IPMN. Sug gest one-year follow-up MRCP. 4. Fatty liver. [facility] SITE ID: [id number]
--- NOTE | 2016-12-07 11:14 | MRI Report ---
EXAM: MR ABDOMEN WITHOUT CONTRAST (MR CHOLANGIOPANCREATOGRAPHY) EXAM DATE: 12/07/2016 10:42 AM. CLINICAL HISTORY: RUQ pain following lap neema - negative CT and HID. COMPARISON: Abdominal ultrasound 11/11/[address] 12/05/2016. HIDA scan 12/06/2016. TECHNIQUE: Multiplanar breath-hold T1 and T2 sequences obtained through the abdomen on an MR scanner. Dedicated 2D and 3D MRCP sequences obtained through the biliary and pancreatic ducts. No intravenous contrast given. FINDINGS: Lung Bases: The lung bases are clear. Liver: Diffuse fatty liver infiltration. No evidence of mass. The intrahepatic bile ducts appear nor mal. CBD: The extrahepatic ducts appear normal. The CBD is 7 mm in diameter. Gallbladder: Surgically absent Pancreas: Tiny 2 mm cystic focus within the dorsal superior pancreatic neck. The pancreatic duct willie ures 1 mm in diameter and appears normal with no stone or stricture. Spleen: The spleen appears normal. Kidneys and Adrenals: The kidneys appear normal with no mass or hydronephrosis. There are no cysts in the kidneys. The adrenals appear normal. Bowel: The small bowel and colon appear normal with no inflammation or obstruction. Small posteroinfe rior gastric fundal diverticulum suspected. Retroperitoneum: The retroperitoneal structures appear normal with no mass or lymphadenopathy. IMPRESSION: 1. No choledocholithiasis or biliary ductal dilatation. 2. Prior cholecystectomy. No abnormal fluid collection evident. 3. A tiny 2 mm cystic focus within dorsal pancreatic neck. Question tiny cyst or sidebranch IPMN. Sug gest one-year follow-up MRCP. 4. Fatty liver. [facility] Referring Provider Line: [phone] SITE ID: [id number]
[2016-12-07 15:46] VITALS: BP 94/62
[2016-12-07] MEDS: ACETAMINOPHEN 1,000 MG/100 ML 100 ML IV PRN (15:53)
--- NOTE | 2016-12-07 17:55 | Discharge Plan ---
Discharge Plan Disposition: 01 Home, Self Care Condition: Good Diet: Regular Activity Restrictions: No Restrictions Shower Restrictions: No Driving Restrictions: No Weight Bearing: Full Weight Additional Instructions or Follow Up instructions: Follow up with primary care physician as CT scan, HIDA scan, MRCP and labs have not shown any surgical etiology for her symptoms. This is NOT related to her gallbladder operation. The admitting diagnosis says that this was postoperative nausea, vomiting and pain and it clearly was not. Patient was eating for 10 days following surgery before symptoms started. No Smoking: If you smoke, Please STOP! Call for help.
--- NOTE | 2016-12-08 06:30 | DISCHARGE SUMMARY ---
DATE OF ADMISSION: 12/05/2016 DATE OF DISCHARGE: 12/07/2016 The patient was seen and evaluated by Dr. Aung Mustafa. His history and physical is a bit incorrect, as he states that she had a laparoscopic cholecystectomy on the 6th by myself (Griselda) and then she had persistent pain in the right upper quadrant and nausea. This was actually incorrect. She was eat ing normally for approximately 10 days, after which her symptoms started. She was then seen by her PM D who started her on Nexium thinking that gastritis might be the cause. She states that the pain is w orsened by eating. She states that she is not able to eat anything, even chicken broth may make her t hrow up. The patient states that she has had some nausea, vomiting, some diarrhea for the previous 10 days. She was not having this acutely following her surgery. At any rate, she was admitted to the [facility] with an admission diagnosis of postoperative nausea, vomiting and pain, which was incorrect, a s she had 10 days of normalcy prior to the recurrence of the nausea, vomiting and pain. While she was in the hospital, she was admitted as an observation patient by Dr. Reyes. She then underwent a CT scan, HIDA scan and MRCP looking for any biliary tract disease that might explain her symptoms and n one was found. As no surgical cause for her pain has been found, she is being discharged home to [facility] with Dr. Brandin Khan. Please note the MRI did note a small 2 mm cystic focus within the dorsal pancreatic neck, the question is if it is a tiny cyst or side branch IPMN. The suggestion is for 1-y ear followup MRCP. Additionally, it also showed fatty liver. The followup for this should be done thr ough Dr. Brandin Khan's office. She is being discharged home without any pain medications, toleratin g a general diet. She is to followup with Dr. Brandin Khan within the next week to 2 weeks. JOB #: [id number] EXT JOB #:[id number]
== END 2016-12-07 17:00 | disposition home or self-care (01) ==
LOC: ED 16:11 → MS 23:42
PROVIDERS: ADMIT Surgery; ATTEND Surgery
DX: R10.13 Epigastric pain (principal); R11.2 Nausea with vomiting, unspecified; E86.0 Dehydration; K76.0 Fatty (change of) liver, not elsewhere classified; E66.01 Morbid (severe) obesity due to excess calories; Z90.49 Acquired absence of other specified parts of digestive tract; Z68.42 Body mass index [BMI] 45.0-49.9, adult
CPT/HCPCS: 36415; 74177; 74181; 78226; 80053; 80306; 81003; 83690; 85025; 96361; 96374; 96375; 96376; 99284; 99285; A9270; A9537; G0378; J0131; J1170; J7120; Q9967; 81001; 87086

== ENCOUNTER 2017-02-09 08:47 | Outpatient (CLI) | payer MEDICAID | END 2017-02-09 08:48 | disposition home or self-care (01) | LOC: LAB.WCP 08:47 | PROVIDERS: ATTEND Family Medicine | DX: F41.9 Anxiety disorder, unspecified (principal) | CPT/HCPCS: 36415; 84443 ==

== ENCOUNTER 2017-07-04 11:25 | Emergency (ER) | payer MEDICAID ==
[2017-07-04] MEDS ORDERED: ALBUTEROL NEB 2.5 MG/3 ML INH STA (12:26)
[2017-07-04] MEDS ORDERED: DEXAMETHASONE 10 MG/ML VIAL PO STA (12:26)
[2017-07-04] MEDS ORDERED: KETOROLAC 60 MG/2 ML VIAL IM STA (12:26)
--- NOTE | 2017-07-04 12:29 | ED Physician Documentation ---
PD HPI URI - Stated complaint Stated Complaint: COUGH, FEVER - Chief complaint Chief Complaint: General - History obtained from History obtained from: Patient, Family - History of Present Illness Timing - onset: How many weeks ago (2) Timing duration: Weeks (2) Timing details: Gradual onset Pain level max: 6 Pain level now: 6 Associated symptoms: Fever (last week), Nasal congestion, Rhinorrhea, Sore throat, Dry cough, Dyspnea Contributing factors: Sick contact (kids at home.) Improves by: Rest, Medication (motrin, tylenol) Worsened by: Activity, Breathing Review of Systems Ten Systems: 10 systems reviewed and negative Nose: reports: Rhinorrhea / runny nose, Congestion Throat: reports: Sore throat Cardiac: denies: Chest pain / pressure Respiratory: reports: Cough GI: denies: Abdominal Pain, Vomiting, Diarrhea Skin: denies: Rash Musculoskeletal: denies: Neck pain, Back pain Neurologic: denies: Headache PD PAST MEDICAL HISTORY - Past Medical History Past Medical History: Yes Cardiovascular: None Respiratory: None Neuro: Headache/migraine Endocrine/Autoimmune: None HEENT: Other Psych: Anxiety Derm: None - Past Surgical History Past Surgical History: Yes General: Cholecystectomy - Present Medications Home Medications: Ambulatory Orders Medication Instructions Recorded Confirmed Albuterol Sulf [Ventolin Hfa 2 puffs INH Q4HR PRN #1 inhaler 07/04/17 Inhaler] Benzonatate [Tessalon Perle] 100 - 200 mg PO TID PRN #30 capsule 07/04/17 Cetirizine HCl/Pseudoephedrine 1 each PO BID PRN #30 tab.er.12h 07/04/17 [Zyrtec-D Tablet] Ibuprofen [Motrin] 800 mg PO Q8H PRN #30 tablet 07/04/17 Loratadine 10 mg PO DAILY 07/04/17 07/04/17 Sertraline HCl 100 mg PO DAILY 07/04/17 07/04/17 - Allergies Allergies/Adverse Reactions: Allergies Allergy/AdvReac Type Severity Reaction Status Date / Time egg Allergy Anaphylaxis Verified 07/04/17 12:21 Egg Derived Allergy Anaphylaxis Verified 07/04/17 12:21 - Social History Does the pt smoke?: No Smoking Status: Never smoker Does the pt drink ETOH?: No Does the pt have substance abuse?: No - Immunizations Immunizations are current?: Yes - POLST Patient has POLST: No PD ED PE NORMAL - Vitals Vital signs reviewed: Yes - General General: Alert and oriented X 3, No acute distress - HEENT HEENT: PERRL, Ears normal, Moist mucous membranes, Pharynx benign - Neck Neck: Supple, no meningeal sign - Cardiac Cardiac: RRR - Respiratory Respiratory: No respiratory distress, Clear bilaterally, Other (diminished BS bilaterally.) - Abdomen Abdomen: Soft, Non tender, Non distended - Derm Derm: Warm and dry - Neuro Neuro: Alert and oriented X 3 - Psych Psych: Normal mood, Normal affect Results - Vitals Vitals: Vital Signs - 24 hr 07/04/17 07/04/17 07/04/17 11:38 12:59 13:31 Temperature 36.9 C 36.9 C Heart Rate 90 88 86 Respiratory 18 20 20 Rate Blood Pressure 142/79 H 147/91 H O2 Saturation 100 100 Oxygen O2 Source Room air PD MEDICAL DECISION MAKING - ED course Complexity details: re-evaluated patient, considered differential, d/w patient ED course: Patient is a 31-year-old female presents to the emergency department with what appears to be a viral upper respiratory infection. She is well-appearing, nontoxic. Afebrile. No hypoxia. Feels better after nebulizer treatment. We will place her on an inhaler for home as well as continue symptomatic care. Patient counseled regarding signs and symptoms for which I believe and urgent re -evaluation would be necessary. Patient with good understanding of and agreement to plan and is comfortable going home at this time This document was made in part using voice recognition software. While efforts are made to proofread this document, sound alike and grammatical errors may occur. Departure - Departure Disposition: 01 Home, Self Care Clinical Impression: Viral URI Condition: Good Instructions: ED Viral Syndrome Follow-Up: Brandin Khan DO [Primary Care Provider] - Within 1 week Prescriptions: Albuterol Sulf [Ventolin Hfa Inhaler] 2 puffs INH Q4HR PRN #1 inhaler PRN Reason: Wheezing Benzonatate [Tessalon Perle] 100 - 200 mg PO TID PRN #30 capsule PRN Reason: Cough Cetirizine HCl/Pseudoephedrine [Zyrtec-D Tablet] 1 each PO BID PRN #30 tab.er.12h PRN Reason: Nasal Congestion Ibuprofen [Motrin] 800 mg PO Q8H PRN #30 tablet PRN Reason: PAIN &/OR FEVER Comments: Return if you worsen. Drink plenty of fluids and rest. Discharge Date/Time: 07/04/17 13:39
[2017-07-04] MEDS ORDERED: ATROPINE ABBOJECT 1 MG/10 ML SYRINGE IVP ONE (12:33)
[2017-07-04] MEDS ORDERED: CHERRY SYRUP 10 ML UDC PO ONE (13:02)
[2017-07-04 13:33] VITALS: BP 147/91
== END 2017-07-04 13:39 | disposition home or self-care (01) ==
LOC: ED 11:25
DX: J06.9 Acute upper respiratory infection, unspecified (principal)
CPT/HCPCS: 94664; 96372; 99283; 99284; A9270; J7613

== ENCOUNTER 2017-12-22 10:00 | Outpatient (CLI) | payer MEDICAID | END 2017-12-22 10:01 | disposition home or self-care (01) | LOC: LAB.WCP 10:00 | PROVIDERS: ATTEND Physician Assistant Medical | DX: N39.0 Urinary tract infection, site not specified (principal) | CPT/HCPCS: 87086; 87181 ==

== ENCOUNTER 2018-12-20 21:43 | Emergency (ER) | payer MEDICAID ==
--- NOTE | 2018-12-20 21:54 | ED Physician Documentation ---
History of Present Illness - Stated complaint Stated Complaint: ALL OVER BODY PAIN FROM FALL - Chief complaint Chief Complaint: Back Pain - History obtained from History obtained from: Patient - History of Present Illness Timing: Today (10 hours ago) Pain level now: 10 Radiates to: Posterior upper thighs Worsened by: Movement - Additonal information Additional information: Is a 33-year-old who was walking through her house when she slipped on 1 of her children's toys and fell back landing on her back just above her butt. She says it was a hardwood floor. It knocked the wind out of her at the time but she did not fall back and hit her head. She did not pass out. This was around 10 AM and she took a 500 mg of Tylenol and just kind of waited it out waiting for her to return home. She has pain across her lower back across the shoulders and up into her neck and she feels like she is in a "fog". Denies headache. No numbness or tingling into the arms or legs. She had no urinary incontinence and denies any current urinary symptoms. She has a history of a "squished disc" in her lower back at "L7" but is never had any surgical intervention. Patient did take 1 of her migraine pills yesterday for headache. Denies . Review of Systems : reports: Missed period (Patient has an IUD and has not had a menstrual cycle in a year). denies: Dysuria, Frequency Skin: denies: Rash Musculoskeletal: reports: Neck pain, Back pain PD PAST MEDICAL HISTORY - Past Medical History Cardiovascular: None Respiratory: None Endocrine/Autoimmune: None HEENT: Other Psych: Anxiety Derm: None - Past Surgical History Past Surgical History: Yes General: Cholecystectomy - Present Medications Home Medications: Ambulatory Orders Medication Instructions Recorded Confirmed Cyclobenzaprine [Flexeril] 10 mg PO TID PRN #20 tablet 12/20/18 SUMAtriptan [Imitrex] 25 mg PO ONCE PRN 12/20/18 12/20/18 - Allergies Allergies/Adverse Reactions: Allergies Allergy/AdvReac Type Severity Reaction Status Date / Time egg Allergy Anaphylaxis Verified 12/20/18 21:51 Egg Derived Allergy Anaphylaxis Verified 12/20/18 21:51 - Social History Does the pt smoke?: No Smoking Status: Never smoker Does the pt drink ETOH?: No Does the pt have substance abuse?: No - Immunizations Immunizations are current?: Yes - POLST Patient has POLST: No PD ED PE NORMAL - Vitals Vital signs reviewed: Yes (Morbidly obese woman, moves very slowly due to pain) - General General: Alert and oriented X 3, No acute distress, Well developed/nourished - Back Back: Other (There is no obvious bruising or swelling. The patient has pain with palpation throughout her entire spine and paraspinal area) - Derm Derm: Other (No bruising) - Neuro Neuro: Alert and oriented X 3, No motor deficit, No sensory deficit, Normal speech, Other (Reflexes are symmetrical at the quadriceps. Sensation is intact to light touch in the upper and lower extremities. 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 She was ambulating without any weakness in her lower extremities or foot drop.) - Psych Psych: Normal mood, Normal affect Results - Vitals Vitals: Vital Signs - 24 hr 12/20/18 21:47 Temperature 36.4 C L Heart Rate 105 H Respiratory 17 Rate Blood Pressure 145/91 H O2 Saturation 98 Oxygen O2 Source Room air PD MEDICAL DECISION MAKING - ED course Complexity details: re-evaluated patient, d/w patient, d/w family ED course: Patient reports her pain is improved by about 25% after Toradol injection. We will give her Flexeril p.o. and prescription for home. Discussed that she needs to take it easy and not overdo it tomorrow she had plans to clean the whole house in preparation for a birthday constitution party for her child. X-rays do not show any acute changes and this was discussed with her. Departure - Departure Disposition: 01 Home, Self Care Clinical Impression: Back pain Qualifiers: Back pain location: low back pain Chronicity: acute Back pain laterality: midline Sciatica presence: unspecified whether sciatica present Qualified Code(s): M54.5 - Low back pain Condition: Good Instructions: ED Low Back Pain Injury Follow-Up: Brandin Khan DO [Primary Care Provider] - Prescriptions: Cyclobenzaprine [Flexeril] 10 mg PO TID PRN #20 tablet PRN Reason: Spasms Comments: Rest tomorrow and do not overdo it with activity. Take ibuprofen 3-4 Tablets every 8 hours with food for the next 2 to 3 days. May also use Flexeril up to 3 times a day but do not drive or operate machinery while taking that medicine. Soaking in Epsom salt bath may also help relax the muscles. Gentle massage can be helpful. Follow-up with your primary care provider if your symptoms are not improving.
[2018-12-20] MEDS ORDERED: KETOROLAC 60 MG/2 ML VIAL IM STA (22:05)
--- NOTE | 2018-12-20 22:34 | XRAY Report ---
Reason: Pain; fell from standing, landing on lower back Procedure Date: 12/20/2018 Accession Number: [id number] / [id number] Procedure: XR - Lumbar Spine 2 View CPT Code: FULL RESULT: EXAM: LUMBOSACRAL SPINE RADIOGRAPHY EXAM DATE: 12/20/2018 10:22 PM. CLINICAL HISTORY: Pain. Fell from standing, landing on lower back. COMPARISONS: ABDOMEN/PELVIS W/ 12/05/2016 6:51 PM. TECHNIQUE: Two views. FINDINGS: Alignment: Normal. No spondylolisthesis or scoliosis. Bones: Five [id number] lumbar vertebral bodies are present. No fractures or bone lesions. Disks: Normal. Disk heights are maintained. Facets: No degenerative changes. Sacroiliac Joints: Unremarkable. Soft Tissues: Normal. The visualized bowel gas pattern is normal. Cholecystectomy clips noted. IUD noted. IMPRESSION: Normal lumbar spine radiography. [facility]
[2018-12-20] MEDS ORDERED: CYCLOBENZAPRINE 10 MG TABLET PO STA (22:51)
[2018-12-20 22:58] VITALS: BP 143/71
== END 2018-12-20 23:01 | disposition home or self-care (01) ==
LOC: ED 21:43
DX: M54.5 Low back pain (principal); M54.2 Cervicalgia; W01.0XXA Fall on same level from slipping, tripping and stumbling without subsequent striking against object, initial encounter; Y92.009 Unspecified place in unspecified non-institutional (private) residence as the place of occurrence of the external cause
CPT/HCPCS: 72100; 96372; 99283; A9270

== ENCOUNTER 2019-11-01 13:48 | Emergency (ER) | payer MEDICAID ==
--- NOTE | 2019-11-01 15:19 | XRAY Report ---
Reason: cough x 2 months Procedure Date: 11/01/2019 Accession Number: [id number] / [id number] Procedure: XR - Chest 2 View X-Ray CPT Code: 03863 Final Report FULL RESULT: EXAM: CHEST RADIOGRAPHY EXAM DATE: 11/01/2019 03:02 PM. CLINICAL HISTORY: Cough x 2 months. COMPARISON: None. TECHNIQUE: 2 views. FINDINGS: Lungs/Pleura: Bronchial thickening. No dense consolidation. No pneumothorax. No pleural effusions. Mediastinum: Heart and mediastinal contours are unremarkable. Other: None. IMPRESSION: 1. Mild bronchial thickening which can be seen with bronchitis or reactive airways disease. No focal consolidation. [facility]
[2019-11-01] MEDS ORDERED: predniSONE 20 MG TABLET PO STA (17:04)
[2019-11-01] MEDS ORDERED: ACETAMINOPHEN/CODEINE 300 MG/30 MG TABLET PO STA (17:04)
[2019-11-01] MEDS ORDERED: AZITHROMYCIN 250 MG TABLET PO STA (17:04)
--- NOTE | 2019-11-01 17:10 | ED Physician Documentation ---
PD HPI DYSPNEA - Stated complaint Stated Complaint: COUGH - Chief complaint Chief Complaint: Resp - History obtained from History obtained from: Patient - History of Present Illness Timing - onset: Other (34-year-old woman has been sick for 2 months with dry cough, nonproductive. Shortness of breath. Coughing spasms that are quite uncomfortable associated with headache. No fevers. Her son and were sick at the outset with similar but recovered quickly. She has a history of seasonal asthma. She saw her physician who prescribed an albuterol inhaler which has not been helpful.) Review of Systems Constitutional: reports: Fatigue. denies: Fever, Chills Nose: denies: Rhinorrhea / runny nose Throat: denies: Sore throat Cardiac: denies: Chest pain / pressure, Palpitations Respiratory: reports: Dyspnea, Cough PD PAST MEDICAL HISTORY - Past Medical History Cardiovascular: None Respiratory: None Neuro: Migraines Endocrine/Autoimmune: None HEENT: Other Psych: Anxiety Derm: None - Past Surgical History Past Surgical History: Yes General: Cholecystectomy - Present Medications Home Medications: Ambulatory Orders Medication Instructions Recorded Confirmed Cyclobenzaprine [Flexeril] 10 mg PO TID PRN #20 tablet 12/20/18 SUMAtriptan [Imitrex] 25 mg PO ONCE PRN 12/20/18 12/20/18 Acetaminophen with Codeine 1 each PO Q4H PRN #20 tablet 11/01/19 [Tylenol with Codeine #3 Tablet] Azithromycin 1 tab PO DAILY #4 tablet 11/01/19 predniSONE [Deltasone] 20 mg PO [id number] #21 tab 11/01/19 - Allergies Allergies/Adverse Reactions: Allergies Allergy/AdvReac Type Severity Reaction Status Date / Time egg Allergy Anaphylaxis Verified 12/20/18 21:51 Egg Derived Allergy Anaphylaxis Verified 12/20/18 21:51 hydromorphone [From Dilaudid] AdvReac Emesis Verified 11/01/19 14:03 - Social History Does the pt smoke?: No Smoking Status: Never smoker Does the pt drink ETOH?: No Does the pt have substance abuse?: No - Immunizations Immunizations are current?: Yes - POLST Patient has POLST: No PD ED PE NORMAL - Vitals Vital signs reviewed: Yes - General General: Alert and oriented X 3, No acute distress - Neck Neck: Supple, no meningeal sign, No bony TTP - Cardiac Cardiac: RRR, No murmur - Respiratory Respiratory: No respiratory distress, Other (Diminished throughout without focal findings, frequent bronchitic cough) - Neuro Neuro: Alert and oriented X 3, Normal speech Results - Vitals Vitals: Vital Signs - 24 hr 11/01/19 11/01/19 13:58 16:50 Temperature 36.5 C Heart Rate 100 100 Respiratory 20 16 Rate Blood Pressure 148/92 H 143/100 H O2 Saturation 95 99 Oxygen O2 Source Room air - Rads (name of study) 2v chest Radiology: EMP read contemporaneously (bronchitis pattern) PD MEDICAL DECISION MAKING - ED course ED course: 34-year-old woman with bronchitis clinically and radiographically. She does fit criteria for antibiotic trial given the time course and lack of response to other more conservative measures. Departure - Departure Disposition: 01 Home, Self Care Clinical Impression: Bronchitis Condition: Good Record reviewed to determine appropriate education?: Yes Instructions: ED Bronchitis Asthmatic Prescriptions: Acetaminophen with Codeine [Tylenol with Codeine #3 Tablet] 1 each PO Q4H PRN #20 tablet PRN Reason: cough or headache Azithromycin 1 tab PO DAILY #4 tablet predniSONE [Deltasone] 20 mg PO [id number] #21 tab Comments: Follow-up with your doctor in 1 week if not better, return for new or worsening symptoms. Do not drink or drive while taking codeine.
[2019-11-01 17:21] VITALS: BP 148/98
== END 2019-11-01 17:21 | disposition home or self-care (01) ==
LOC: ED 13:48
DX: J40 Bronchitis, not specified as acute or chronic (principal)
CPT/HCPCS: 71046; 99283; 99284; A9270; J7512

== ENCOUNTER 2020-09-16 08:00 | Outpatient (CLI) | payer MEDICAID ==
[2020-09-16 12:35] LABS: BASOPHILS % (AUTO) 0.3 %; EOSINOPHILS # (AUTO) 0.3 10^3/uL (0.0-0.7); EOSINOPHILS % (AUTO) 2.2 %; HCT - HEMATOCRIT 41.5 % (37.0-47.0); HGB - HEMOGLOBIN 12.2 g/dL (12.0-16.0); LYMPHOCYTES # (AUTO) 1.8 10^3/uL (1.5-3.5); LYMPHOCYTES % (AUTO) 13.8 %; MEAN CORPUSCULAR HEMOGLOBIN 23.5 pg (27.0-31.0); MEAN CORPUSCULAR HGB CONC 29.4 g/dL (32.0-36.0); MEAN CORPUSCULAR VOLUME 79.8 fL (81.0-99.0); MEAN PLATELET VOLUME 10.5 fL (7.9-10.8); MONOCYTES # (AUTO) 0.5 10^3/uL (0.0-1.0); MONOCYTES % (AUTO) 3.8 %; NEUTROPHILS # (AUTO) 10.2 10^3/uL (1.5-6.6); NEUTROPHILS % (AUTO) 79.4 %; PLT - PLATELET COUNT 344 10^3/uL (130-450); RED CELL DISTRIBUTION WIDTH 17.7 % (12.0-15.0); WHITE BLOOD COUNT 12.9 x10^3/uL (4.8-10.8)
[2020-09-16 12:50] LABS: RHEUMATOID FACTOR NEGATIVE (Negative)
[2020-09-16 12:53] LABS: HCG,QUALITATIVE BLOOD NEGATIVE
[2020-09-16 12:58] LABS: ALBUMIN 3.7 g/dL (3.2-5.5); ALBUMIN/GLOBULIN RATIO 0.9 (1.0-2.2); BILIRUBIN,TOTAL 0.5 mg/dL (0.2-1.0); CREATININE 0.7 mg/dL (0.4-1.0); CRP - C-REACTIVE PROTEIN 4.4 mg/dL (0-1.0); TOTAL PROTEIN 7.9 g/dL (6.7-8.2)
[2020-09-16 13:00] LABS: THYROID STIMULATING HORMONE 2.85 uIU/mL (0.34-5.60)
== END 2020-09-16 23:59 | disposition home or self-care (01) ==
LOC: LAB.WCP 08:00
PROVIDERS: ATTEND Family Medicine
DX: M25.50 Pain in unspecified joint (principal); Z30.431 Encounter for routine checking of intrauterine contraceptive device
CPT/HCPCS: 36415; 80053; 84443; 84550; 84703; 85025; 85651; 86140; 86200; 86430

== ENCOUNTER 2020-09-30 08:55 | Outpatient (CLI) | payer MEDICAID ==
[2020-09-30 09:48] VITALS: BP 139/88
--- NOTE | 2020-09-30 09:48 | SLEEP CARE CONSULTATION ---
Information from patient questionnaire entered by Diana Langston. I have reviewed and concur with the information entered by Diana Langston. This document represents the service I personally performed and the decisions made by me, Radha Lance ARNP. History of Present Illness Service Date and Time: 09/30/2020 0855 Reason for Visit: New patient Chief Complaint: reports: Insomnia, Unrefreshed sleep, Snoring, Excessive daytime sleepiness, Observed pauses in breathing, Fatigue, Frequent awakenings at night Date of Onset: 2012 Usual bedtime: 10 pm Time it takes to fall asleep: 60 minutes Snores at night: Yes (very loudly) Observed to quit breathing while asleep: Yes Sleeps alone due to snoring: No Number of times waking at night: 3 or more Reasons for waking at night: reports: Choking (not often), Snoring, Gasping for air (not often), Pain, Bathroom, Other (unsettled, and restless half asleep) Toss, Turn, or Twitch while sleeping: Yes Recalls having dreams: No Usually gets out of bed at: 7:30 am Feels refreshed in the morning: No Morning headache: Yes (almost every day) Sleepy or fatigued during the day: Yes Ever fallen asleep while driving: No Takes day naps: No Dreams during day naps: No Prior sleep studies: No Additional HPI information: I had the pleasure of seeing EMANUEL HERNANDEZ today regarding the possibility of her having a sleep disorder. Her current complaints are insomnia, snoring, observed pauses in breathing, frequent night awakenings, unrefreshed sleep, excessive daytime sleepiness and fatigue. She has had sleep trouble since having her first daughter. Her weight fluctuated a lot and her fibromyalgia was misdiagnosed. She can't sleep, has restless sleep and gets up frequently to go to bathroom. She tells me that when she is sleeping it feels as if she is just laying there and not really in a deep sleep most of the time. Her tells her she snores very loudly and she has stopped breathing for periods of time. She states you can hear her snoring at her neighbors house. She never feels rested when she wakes up and is always tired. She is the mother of 2 children, one is autistic. She tries to eat very healthy, walks a mile daily and spends 30 minutes on her exercise bike most evenings but is unable to lose weight. She has gained over 100 pounds in the last 5 years. - Parasomnia Symptoms Ever been unable to move upon waking from sleep: No Walks in sleep: No Talks in sleep: No Ever acted out dreams in sleep: No Ever felt weak in the knees when startled or emotional: Yes Bothered by creepy, crawly, restless sensations in legs: Yes Problems with memory or concentration: Yes (both, mostly from Fibromyalgia) Subjective Initial [place] Sleepiness Scale score: 10 (in 2020) Past Medical History Past Medical History: reports: Fibromyalgia, Anemia, Asthma, Depression, Mood disorder (may be due to fibromyalgia) Social History The patient's occupation is a Not Employed. Patient is and lives in [place]. Have you smoked in the past 12 months: No Alcohol use: No Caffeine use: Yes Caffeine amount and frequency: 2 a day, 1 coffee 1 energy Family History Family history of sleep disordered breathing: Yes (mother, father, grandfather) Family Hx Sleep Apnea: Mother: Sleep apnea - Treated, Father: Sleep apnea - Treated, Grandparent: Sleep apnea - Treated Allergies and Home Medications Drug allergies reviewed: Yes (hydromorphone) Home medication list reviewed: Yes Allergy and home medication list: Tylenol Claritin Bupropion Amytriptyline Review of Systems Weight gain over past 5 years: 100+ Cardiovascular: denies: high blood pressure Respiratory: reports: shortness of breath, wheeze Gastrointestinal: reports: nausea Neurological: reports: headaches, disorientation Psychiatric: reports: anxiety, depression Ear/Nose/Throat: reports: nasal congestion, sinus problems, nose bleeds, dry mouth/throat. denies: tonsillectomy Musculoskeletal: reports: joint pain, neck pain, back pain, joint swelling, muscle pain or cramping, mobility problems Immunologic: reports: sneezing, rash, itching, allergies to food or environment Physical Exam Blood Pressure: 139/88 Cuff size: large Heart Rate: 96 O2 Saturation: 98 Height: 5 ft 7 in Weight: 375 lb Body Mass Index: 58.7 BMI Classification: Morbidly Obese Neck circumference: 18.75 (inches) Nostrils: patent to airflow Mouth and throat: narrow oropharynx Soft palate: long Hard palate: normal Uvula visualization: 25% Mallampati Class III Tongue: normal in size Tonsils: 2+ Chin and jaw: normal size and position Neck: normal w/o lymphadenopathy or thyromegaly Heart: regular rate and rhythm Lungs: clear bilaterally Impression and Plan 1. Suspected Obstructive Sleep Apnea-Hypopnea Syndrome, as suggested by a history of loud and irregular snoring, observed cessation of breath while asleep, gasping or choking in sleep, morning headache, frequent awakening during the night, unrefreshed sleep, cognitive impairment, and excessive daytime sleepiness. Narrow oropharynx and obesity are common predisposing factors for obstructive sleep apnea-hypopnea syndrome. I recommend proceeding to polysomnography to confirm the diagnosis and to assess severity. If the patient has significant sleep disordered breathing, a manual CPAP titration study will also be performed to find the optimal treatment pressure. I informed the patient of what the sleep studies involve and after some discussion, obtained agreement to proceed. The pathophysiology of obstructive sleep apnea-hypopnea syndrome was discussed with the patient and health risks of cardiovascular and cerebrovascular disease if not treated. 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 Patient agreed to plan. * Schedule polysomnography +- manual CPAP titration study and return in 1-2 weeks after the study to discuss result and initiate therapy. * Avoid long distance driving or driving when feeling sleepy. * Avoid alcohol, sedative and muscle relaxant around bedtime. * Attempt to lose weight. * Review instructions provided by trained office staff on how to prepare for the sleep study. * Return for follow-up after sleep study completed. Counseling Topics: Weight loss health impact Visit Type: In Office Time Spent with Patient (minutes): 33 Provider Statement: I spent 100% of the Face to Face Visit with the patient with greater than 50% spent counseling the patient and coordination of care.
== END 2020-09-30 08:56 | disposition home or self-care (01) ==
LOC: SC 08:55
PROVIDERS: ATTEND Nurse Practitioner Family
DX: G47.10 Hypersomnia, unspecified (principal); R06.83 Snoring; R06.81 Apnea, not elsewhere classified; R53.83 Other fatigue; G47.8 Other sleep disorders; E66.01 Morbid (severe) obesity due to excess calories; Z68.43 Body mass index [BMI] 50.0-59.9, adult; R51.9 Headache, unspecified; R41.89 Other symptoms and signs involving cognitive functions and awareness
CPT/HCPCS: 99203; 99212

== ENCOUNTER 2020-10-12 12:59 | Outpatient (CLI) | payer MEDICAID | END 2020-10-12 13:00 | disposition home or self-care (01) | LOC: SC 12:59 | PROVIDERS: ATTEND Nurse Practitioner Family | DX: G47.33 Obstructive sleep apnea (adult) (pediatric) (principal); R09.02 Hypoxemia; R00.0 Tachycardia, unspecified; E66.01 Morbid (severe) obesity due to excess calories; Z68.45 Body mass index [BMI] 70 or greater, adult | CPT/HCPCS: 95806 ==

== ENCOUNTER 2020-10-27 13:53 | Outpatient (CLI) | payer MEDICAID ==
--- NOTE | 2020-10-27 14:16 | SLEEP CARE CONSULTATION ---
Information from patient questionnaire entered by Rishi Maguire. I have reviewed and concur with the information entered by Rishi Maguire. This document represents the service I personally performed and the decisions made by me, Radha Lance ARNP. History of Present Illness Service Date and Time: 10/27/2020 1353 Initial [place] Sleepiness Scale score: 10 (in 2020) Current [place] Sleepiness Scale score: 11 Additional HPI information: EMANUEL HERNANDEZ returns for follow up and results of the recently performed home sleep study. I explained the pathophysiology behind obstructive sleep apnea. We then spent quite a bit of time discussing different treatment options. For mild obstructive sleep apnea, surgery and oral appliance are alternatives to nasal CPAP therapy but in moderate or severe cases, nasal CPAP is the most effective and reliable treatment. Because apnea is primarily in supine position, then positional management therapy could be effective. Methods discussed such as positioning with pillows, using a T-shirt with tennis balls in the back, and shown commercial products that have a pillow format on back to prevent supine sleep. I reviewed the impact of weight changes on sleep apnea and strongly recommended losing weight. After some discussion, the patient opted to go with the nasal CPAP therapy. Nasal autoCPAP set at 4-15 cmH20 will be ordered with rationale explained. A manual titration study will be ordered if unable to find optimal pressure with office adjustments. I explained how CPAP machine works with sample devices Respironics Dreamstation and [employer] [id number] and what to expect when using the machine. Using CPAP every night in order to get used to it was emphasized. Patient advised to put CPAP mask on before getting into bed so as not to fall asleep without CPAP. To assist acclimation to CPAP use, it could also be used for a short time during day while reading or watching TV. The patient was instructed to call the CPAP supplier to discuss any mechanical problem that may occur. If the mask given is uncomfortable or is difficult to keep on through the night even with adjustment, contact the CPAP supplier as many will replace with another mask style if notified before 30 days. If snoring or perceives is not getting enough air or too much air from the machine, notify this office. [facility] patient education PAP tips reviewed and given to patient. Patient does not drink alcohol. Patient was cautioned about risks of drowsy driving until sleepiness symptoms resolve. Sleep Study - Results Type of Sleep Study: Home sleep study Prior sleep studies: No Polysomnography/Home Sleep Study results: Physician Impression: The quality of the study is good. The length of the study is adequate (> 240 minutes). Please also see the tabulated and graphic data. 1. Obstructive Sleep Apnea-Hypopnea (ICD-10 G47.33), severe, with an AHI of 108.2/hr and pro SaO2 of 47%. During the study, the patient had 818 apneas (818 obstructive, 0 central, 0 mixed) and 21 hypopneas. The longest episode lasted 91.5 seconds. The respiratory events occurred more frequently during supine sleep (supine AHI was 72.9 and non-supine, 111.76). 2. Hypoxemia (ICD-10 R09.02), severe, with the lowest oxygen saturation of 47 % and 306.7 minutes with SaO2 under 90%. Baseline oxygen saturation was low (Average oxygen saturation was 82%). 3. Tachycardia, with maximum recorded heart rate of 189 beats per minute. Allergies and Home Medications Home medication list reviewed: Yes (no new meds) Review of Systems Review of systems same as previous: No (dental infection, taking Amoxicillin) Physical Exam Heart Rate: 99 O2 Saturation: 97 Height: 5 ft 7 in Weight: 377 lb Body Mass Index: 59.0 BMI Classification: Morbidly Obese Impression and Plan 1. Obstructive Sleep Apnea-Hypopnea Syndrome, extremely severe, with lowest oxygen saturation of 47%. Obviously this is the cause of the patients symptoms of unrefreshed sleep, and excessive daytime sleepiness. Positive pressure therapy could benefit depression, fibromyalgia and mood disorder. As mentioned above, the patient will be started on nasal autoCPAP therapy with pressure set at 4-15 cmH2O. A manual titration study will be completed if unable to find optimal treatment pressure with office adjustments. Compliance guidelines also reviewed. A copy of compliance guidelines will be given for reference at check out. Because the apnea is more severe supine, I instructed to avoid sleeping supine using pillow positioning until able to start CPAP use. 2. Hypoxemia (ICD-10 R09.02), severe, with the lowest oxygen saturation of 47 % and 306.7 minutes with SaO2 under 90%. Her baseline oxygen saturation was low, on average oxygen saturation was 82%). 3. Tachycardia, with maximum recorded heart rate of 189 beats per minute during the study. Tachycardia may be secondary to obstructive sleep apnea. Follow up with PCP as needed for evaluation. * Urgent setup: Nasal auto CPAP therapy, pressure at 4-15 cm H2O. * Attempt to lose weight. * Avoid alcohol consumption near bedtime. * Avoid supine sleep until using CPAP. * The patient is again cautioned about driving until sleepiness completely resolves. * Return one month after CPAP obtained. I will assess response to therapy and compliance at that time. Counseling Topics: Weight loss health impact Follow up with Sleep Care in: 1 year Visit Type: In Office Time Spent with Patient (minutes): 20 Provider Statement: I spent 100% of the Face to Face Visit with the patient with greater than 50% spent counseling the patient and coordination of care.
== END 2020-10-27 13:54 | disposition home or self-care (01) ==
LOC: SC 13:53
PROVIDERS: ATTEND Nurse Practitioner Family
DX: G47.33 Obstructive sleep apnea (adult) (pediatric) (principal); R09.02 Hypoxemia; E66.01 Morbid (severe) obesity due to excess calories; Z68.43 Body mass index [BMI] 50.0-59.9, adult
CPT/HCPCS: 99212; 99213

== ENCOUNTER 2021-01-05 13:47 | Outpatient (CLI) | payer MEDICAID ==
--- NOTE | 2021-01-05 14:13 | SLEEP CARE CONSULTATION ---
Information from patient questionnaire entered by Diana Langston. I have reviewed and concur with the information entered by Diana Langston. This document represents the service I personally performed and the decisions made by , Radha Lance ARNP. History of Present Illness Service Date and Time: 01/05/2021 1347 Previous diagnosis: Extremely Severe, Obstructive Sleep Apnea-Hypopnea Syndrome AHI: 108.2 (in 2020) Reason for follow up: first compliance Equipment type: CPAP Equipment obtained from: Other ([facility]; got initial supplies) Mask style: Full face (AirFit F30) Backup mask available: No (will keep old mask when replaced) Last cushion change: 1 month Prior sleep studies: Yes Year and Where: 2020 - [facility] Type of Sleep Study: Home sleep study HPI additional information: EMANUEL HERNANDEZ was diagnosed to have extremely severe, AHI 108.2, obstructive sleep apnea-hypopnea syndrome and returned today for CPAP therapy first compliance follow-up. CPAP Compliance Data - Data Reviewed with Patient Average duration of nightly device use: 6 hr 36 min Compliance rate %: 90 Current pressure setting (cmH2O): 4-15 (median 14.0, avg 14.9, max 15.0) Humidity settin Average residual AHI: 1.9 Subjective Missed days of use due to: reports: illness (dental work) Patient concerns: reports: mask discomfort (got wrong size at first), air blowing in eyes, dry mouth, nose, throat. denies: aerophagia, mask leak noise, condensation in mask/hose, nasal congestion, epistaxis, other Observed to snore while using device: No Current pressure setting perceived as: comfortable On therapy, patient: reports: sleeping better, awakening more refreshed, being more awake and alert during the day, more rested overall. denies: drowsiness while driving Initial [place] Sleepiness Scale score: 10 (in 2020) Current [place] Sleepiness Scale score: 8 Allergies and Home Medications Home medication list reviewed: Yes (no changes) Review of Systems Review of systems same as previous: Yes (no changes) Physical Exam Heart Rate: 91 O2 Saturation: 99 Height: 5 ft 7 in Weight: 373 lb Body Mass Index: 58.3 BMI Classification: Morbidly Obese Impression and Plan 1. Obstructive Sleep Apnea-Hypopnea Syndrome, extremely severe, with good treatment compliance and good apnea control. On CPAP therapy, the patient has better sleep quality and is more rested overall. The patients pressure will be changed to autoCPAP 14-16 cmH20. Patient advised to contact me if pressure change is uncomfortable so that it can be adjusted. Goals for apnea control discussed. She has had difficulty with her mask. She was getting some air leaking into her eyes and she made an appointment to go back to [facility] for an adjustment. She states they just tightened it more and told her that there was no other mask sizes available at that time. She states she has to over-tighten the headgear to reduce the air leaks or decided to just tolerate the air leaking into her eyes with the current mask. She prefers the full face mask since she is a mouth breather. I will write for a mask refitting to see if she can get a better fitting full face mask than what she currently is using. She voiced understanding and agreement with this plan of care Patient's apnea severity and rationale for treatment to reduce apnea, improve sleep quality and reduce cardiovascular and cerebrovascular events was reviewed. I also reviewed the benefit of consistent device use of CPAP for depression, fibromyalgia and mood disorder. * Change auto CPAP pressure to 14-16 cmH2O * Notify me if snoring with mask or feeling that the pressure is too much or too little * Attempt to lose weight * Call this office if any problems using CPAP * Return for follow up in 1-2 months, or sooner if concerns arise Counseling Topics: Spare mask, Weight loss health impact Visit Type: In Office Time Spent with Patient (minutes): 12 Provider Statement: I spent 100% of the Face to Face Visit with the patient with greater than 50% spent counseling the patient and coordination of care.
== END 2021-01-05 13:48 | disposition home or self-care (01) ==
LOC: SC 13:47
PROVIDERS: ATTEND Nurse Practitioner Family
DX: G47.33 Obstructive sleep apnea (adult) (pediatric) (principal); E66.01 Morbid (severe) obesity due to excess calories; Z68.43 Body mass index [BMI] 50.0-59.9, adult
CPT/HCPCS: 99212